=== PATIENT | female | born 1990 | race Caucasian/White ===

== ENCOUNTER → 2016-10-06 | Outpatient (CLI) | payer OTHER | END | disposition home or self-care (01) | LOC: RAD.S 09:30 | DX: R10.11 Right upper quadrant pain (principal); K76.0 Fatty (change of) liver, not elsewhere classified ==

== ENCOUNTER → 2016-10-07 | Outpatient (CLI) | payer OTHER | END | disposition home or self-care (01) | LOC: RAD.S 09:08 | DX: R10.11 Right upper quadrant pain (principal); R11.10 Vomiting, unspecified ==